=== PATIENT | female | born 1970 | race Caucasian/White ===

== ENCOUNTER 2018-03-03 17:42 | Emergency (ER) | payer BC, SELFPAY ==
[2018-03-03 17:43] VITALS: BP 144/76; PULSE 79; RESP 16; TEMP 36.7; O2SAT 97; BMI 38.7
--- NOTE | 2018-03-03 17:58 | CT_ITS ---
STUDY: CT ABDOMEN AND PELVIS WITHOUT CONTRAST REASON FOR EXAM: Female, 47 years old. Right-sided pain RADIATION DOSAGE (If Supplied By Facility): CTDIvol = ( 17.26 ) mGy, DLP = ( 888.25 ) mGycm TECHNIQUE: Transaxial images were obtained from the dome of the diaphragm to the symphysis pubis without oral contrast, and without intravenous contrast. Sagittal and coronal images were reconstructed. Individualized dose optimization techniques were used for this CT. COMPARISON: None. FINDINGS: Evaluation of the abdominal viscera is limited in the absence of intravenous contrast. The visualized lung bases are clear. The visualized portions of the heart and pericardium are within normal limits. There are no calcified gallstones present. The liver demonstrates an unremarkable unenhanced appearance. The spleen is normal in size. The pancreas demonstrates an unremarkable unenhanced appearance. The adrenal glands are within normal limits. There are no renal or ureteral stones. There is no hydronephrosis. Normal visualized stomach. There is no bowel obstruction or inflammation. The appendix is visualized and appears normal. The aorta is normal in caliber. There is no abdominal or pelvic free air, free fluid, fluid collection or lymphadenopathy. There are no destructive osseous lesions. CT/Abdomen/Pelvis without Cont IMPRESSION: No acute abdominal or pelvic pathology demonstrated on this noncontrast CT. Electronically Signed: rA Lord, at 19:17 EST Tel , Service support ,
[2018-03-03] MEDS: 0.9% Normal Saline 1,000 ML 125 ML IV (18:45)
[2018-03-03] MEDS: Ketorolac 30 MG/ML Syringe IV (18:45)
[2018-03-03 18:57] LABS: BUN 14 mg/dL (7-18); BUN/Creat Ratio 16.4 RATIO (10-20); Chloride 105 mmol/L (98-107); Creatinine, Serum 0.86 mg/dL (0.55-1.02); EST Glomerular Filtration Rate 75 mL/min (>60); Est Glom Filt Rate - Afr Amer 91 mL/min (>60); Glucose 105 mg/dL (74-106); Potassium 3.9 mmol/L (3.5-5.1); Sodium Level 137 mmol/L (136-145)
[2018-03-03 18:58] LABS: Anion Gap 10 (5-15)
[2018-03-03 19:01] LABS: Absolute Lymphocyte Count 3.51 X10^3/ul (0.83-4.51); Absolute Neutrophil Count 10.3 X10^3/uL (2.0-7.7); Basophil# 0.03 X10^3/uL; Basophil% 0.2 % (0-1); Eosinophil# 0.14 X10^3/uL; Eosinophils% 0.9 % (0-5); Hematocrit 44.3 % (37-47); Hemoglobin 15.1 g/dl (12.0-15.0); Lymphocyte # 3.51 X10^3/ul (4.0); Lymphocyte % 22.9 % (19-41); Mean Corp Hgb Conc 34.1 g/gl (32-36); Mean Corpuscular Hgb 29.3 pg (27.0-32.0); Mean Corpuscular Volume 85.9 fL (81-99); Mean Platelet Vol. 9.1 fl (6.2-12.0); Monocyte# 1.25 X10^3/uL; Monocyte% 8.2 % (0-10); Neutrophil # 10.34 X10^3/uL (2.7-7.7); Neutrophil % 67.5 % (47-70); Platelet Count 376 K/mm3 (150-450); RBC Distribution Width CV 12.8 % (11.6-14.6); RBC Distribution Width SD 40.2 fl (35.1-43.9); Red Blood Count 5.16 M/mm3 (4.2-5.4); White Blood Count 15.3 K/mm3 (4.4-11.0)
[2018-03-03 19:02] LABS: Mucous, Urine 0 SEEN /hpf (<or=2+); White Blood Cells 0 SEEN /hpf (0-5)
[2018-03-03 19:08] LABS: Color, Urine SEE COMMENT BELOW (Yellow); Glucose, Dipstick Normal (Normal); Ketone-Dipstick Negative (Negative); Leukocyte Esterase-Dipstick Negative /ul (Negative); Nitrite-Dipstick Negative (Negative); Occult Blood-Urine 150 /ul (Negative); Protein-Dipstick 100 mg/dl (Negative); Urine Bilirubin Dipstick 3 mg/dL (Negative); Urine Clarity Sl. Cloudy (Clear); Urine Urobilinogen 1 mg/dl (Normal)
[2018-03-03 19:17] LABS: Bacteria RARE /hpf (None Seen); Red Blood Cells-Urine > 100 SEEN /hpf (0-5); Squamous Epithelial Cells - UA 5-10 SEEN /hpf (5-10)
[2018-03-03 19:19] LABS: POSITIVE COUNT NO; POSITIVE DIFFERENTIAL NO; POSITIVE MORPHOLOGY NO
--- NOTE | 2018-03-03 19:38 | ED.VISSUMM ---
- ER Visit Summary Date of Service: 03/03/18 Chief Complaint: [Right-sided abdomen/flank pain] History of Present Illness: The patient is a 47 F [presents the emergency department with complaint of pain in her right side that started around 4 PM. Patient states that she had sudden onset of severe excruciating pain that caused her to be nauseated and have dry heaves. Patient states that after coming home from work she started having some urinary frequency-like symptoms and so she took some Pyridium. Patient then subsequently developed severe pain with diaphoresis. Patient is never had pain like that before. On arrival to the emergency department she states that her pain is much improved and is currently a 2 out of 10. Patient denies any fever or recent illness. Patient does have a history of UTIs. Patient's last menstrual period was February 24. She does not believe she is .] Physical Examination: [HEENT-PERRLA, EOMI. Cranial nerves II through XII grossly intact. TMs clear. Mucous membranes moist. No adenopathy. Cardiovascular-regular rate and rhythm without murmur or ectopy Lungs-clear to auscultation, chest wall stable without crepitus or subcu emphysema Abdomen-normoactive bowel sounds, soft. Patient has mild tenderness over right lower quadrant with no rebound, rigidity, or perineal signs. Extremities-intact ?4, normal range of motion, normal pulses, atraumatic] Test Results: [CBC with differential obtained showed a white count of 15.3, hemoglobin 15, hematocrit 44, platelets 376. Chemistries were unremarkable. Urinalysis was positive for greater than 100 RBCs but no signs of infection. Urine test pending. CT flank was normal. Patient had a normal appendix and no other acute disease process was noted.] Emergency Department Course and Treatment: [Patient was given Toradol on arrival to the emergency department. Patient is currently pain-free.] Treatment Plan: [I suspect patient likely passed a kidney stone given the blood in the urine and her description of sudden onset severe pain. Patient advised to follow-up with her primary care physician within next 3-5 days. Patient advised to return if worsening pain, fever, vomiting, or condition should worsen anyway.] Disposition: [Discharged home in stable condition] Impression: [Kidney stone-past] This note was generated with [employer] software. It may contain incorrect words, spelling, and punctuation that were not noted in review of the chart prior to signing ED Disposition - Plan for ED Patient: Chief Complaint: Abd Pain Referrals: Care Physician,No Primary [Primary Care Provider] -
--- NOTE | 2018-03-03 19:41 | ED.DEP ---
ED Disposition - Plan for ED Patient: Chief Complaint: Abd Pain Instructions: ED Stone Renal Passed Referrals: Shi Acosta MD [STAFF PHYSICIAN] - 3-5 Days
[2018-03-03 20:08] VITALS: BP 122/78; PULSE 84; RESP 17; RESP 18; O2SAT 94
[2018-03-03 20:14] LABS: Internal QC Validated? YES +Cl - CLEAR BKGD; Pregnancy, Urine Negative Negative
== END 2018-03-03 20:10 | disposition home or self-care (01) ==
PROVIDERS: Emergency Provider Emergency Medicine
DX: N20.0 Calculus of kidney (principal); R10.31 Right lower quadrant pain; Z87.440 Personal history of urinary (tract) infections
CPT/HCPCS: 74176; 80048; 81001; 81025; 85025; 96361; 96374; 99283; J7030; A4216

== ENCOUNTER → 2019-06-23 15:21 | Outpatient (CLI) | payer BC, SELFPAY ==
--- NOTE | 2019-06-23 15:25 | RAD_ITS ---
STUDY: X-RAY - PARANASAL SINUSES REASON FOR EXAM: Female, 49 years old. Snoring, unable to breathe while sleeping TECHNIQUE: 3 view(s) of the paranasal sinuses were obtained. COMPARISON: None. FINDINGS: Normal visualized frontal, maxillary, ethmoidal and sphenoid sinuses. Normal visualized facial bones. The soft tissue structures are unremarkable. RAD/Sinuses min 3 Views IMPRESSION: Normal x-rays of the paranasal sinuses. Electronically Signed: Bao Merino, at 15:56 EDT , Service support ,
[2019-06-23 18:01] LABS: Anion Gap 7 (5-15); BUN 11 mg/dL (7-18); BUN/Creat Ratio 11.2 RATIO (10-20); Calcium,Total 9.2 mg/dL (8.5-10.1); Chloride 105 mmol/L (98-107); Cholesterol 237 mg/dL (200); Creatinine, Serum 0.98 mg/dL (0.55-1.02); EST Glomerular Filtration Rate 64 mL/min (>60); Est Glom Filt Rate - Afr Amer 78 mL/min (>60); Glucose 70 mg/dL (74-106); High Density Lipoprotein 51 mg/dL; Potassium 3.6 mmol/L (3.5-5.1); Sodium Level 138 mmol/L (136-145); Thyroid Stim Hormone (TSH) 3.56 uIU/mL (0.358-3.74); Triglycerides 82 mg/dL; Very Low Density Lipoprotein 16 mg/dL (5-40)
== END ==
PROVIDERS: PCP Family Medicine; Referring Provider Family Medicine; Visit Provider Family Medicine
DX: R06.83 Snoring (principal); E78.00 Pure hypercholesterolemia, unspecified; Z13.1 Encounter for screening for diabetes mellitus; E66.9 Obesity, unspecified
CPT/HCPCS: 36415; 70220; 80048; 80061; 84443

== ENCOUNTER → 2020-12-26 | Outpatient (CLI) | payer BC, SELFPAY | END | disposition home or self-care (01) | PROVIDERS: PCP Family Medicine; Visit Provider Family Medicine | DX: U07.1 COVID-19 (principal) | CPT/HCPCS: 87635; U0005; U0003 ==

== ENCOUNTER 2020-12-27 15:59 | Outpatient (CLI) | payer BC, SELFPAY ==
[2020-12-27 16:14] VITALS: BP 133/76; PULSE 113; RESP 16; TEMP 37; O2SAT 96; BMI 38.0
[2020-12-27] MEDS: 0.9% Saline Lock 10 ML Syringe IV (16:20)
[2020-12-27 17:07] VITALS: BP 114/70; PULSE 84; RESP 16; TEMP 37.9; O2SAT 95
[2020-12-27 18:10] VITALS: BP 119/70; PULSE 85; RESP 16; TEMP 37.1; O2SAT 94
== END 2020-12-27 18:10 | disposition home or self-care (01) ==
LOC: MS3OUT 15:59 → MS3 16:00
PROVIDERS: PCP Family Medicine; Referring Provider Nurse Practitioner Adult Health; Visit Provider Nurse Practitioner Adult Health
DX: Z23 Encounter for immunization (principal); U07.1 COVID-19
CPT/HCPCS: J7050; M0245; Q0245; A4216

== ENCOUNTER 2021-12-02 10:06 | Outpatient (CLI) | payer BC, SELFPAY ==
[2021-12-09 19:09] LABS: HPV APTIMA, High Risk Negative (Negative)
== END 2021-12-02 23:59 | disposition home or self-care (01) ==
LOC: LABSPEC 10:09
PROVIDERS: PCP Family Medicine; Visit Provider Student in an Organized Health Care Education/Training Program
DX: Z12.4 Encounter for screening for malignant neoplasm of cervix (principal)
CPT/HCPCS: 87624; 88175; G0145

== ENCOUNTER → 2021-12-23 | Outpatient (CLI) | payer BC, SELFPAY ==
--- NOTE | 2021-12-23 10:36 | BI_ITS ---
MAMMOGRAPHY - BILATERAL SCREENING REASON FOR EXAM: Female, 51 years old. Routine annual screening examination. PERTINENT HISTORY: Aunt with breast cancer. TECHNIQUE: Digital bilateral breast jose alfredo (3D mammographic acquisition) in the CC and MLO projections. 2-D mediolateral oblique (MLO) and craniocaudad (CC) views of both breasts were obtained. CAD: Full Field Digital Mammography with Computer Added Detection was performed. COMPARISON: Comparison is made with prior study dated 09/03/2012. FINDINGS: Breast Composition: There are scattered areas of fibroglandular density. There are no dominant masses or suspicious calcifications. Stable benign-appearing bilateral axillary lymph nodes. No other significant abnormalities are identified. There has been no significant change since the prior study. BI/SCRN MAMM (CAD)W/JOSE ALFREDO BILAT IMPRESSION: Stable bilateral screening mammogram. Yearly follow-up mammogram recommended. (A) ASSESSMENT CATEGORY: BIRADS Category 2: Benign. A letter regarding these results will be sent to the patient by the facility within 30 days. Approximately 10% of breast cancers are not detected by mammography. A normal mammogram should not delay biopsy of a clinically suspicious abnormality. [id number] Electronically Signed: Bao Merino MD at 12:08 EDT ,
== END | disposition home or self-care (01) ==
LOC: OPBI 10:33
PROVIDERS: PCP Family Medicine; Referring Provider Student in an Organized Health Care Education/Training Program; Visit Provider Student in an Organized Health Care Education/Training Program
DX: Z12.31 Encounter for screening mammogram for malignant neoplasm of breast (principal)
CPT/HCPCS: 77063; 77067

== ENCOUNTER → 2022-10-20 | Outpatient (CLI) | payer BC, SELFPAY ==
[2022-10-20 18:02] LABS: Absolute Neutrophil Count 4.5 X10^3/uL (2.0-7.7); Basophil# 0.08 X10^3/uL; Basophil% 0.8 % (0-1); Eosinophil# 0.35 X10^3/uL; Eosinophils% 3.5 % (0-5); Hematocrit 41.6 % (37-47); Lymphocyte % 41.2 % (19-41); Mean Corp Hgb Conc 33.7 g/dL (32-36); Mean Corpuscular Hgb 30.1 pg (27.0-32.0); Mean Corpuscular Volume 89.5 fL (81-99); Mean Platelet Vol. 9.6 fl (6.2-12.0); Monocyte# 0.92 X10^3/uL; Monocyte% 9.2 % (0-10); NRBC Flagged by Analyzer 0 % (0-5); Neutrophil # 4.48 X10^3/uL (2.7-7.7); Neutrophil % 45.1 % (47-70); Platelet Count 340 K/mm3 (150-450); RBC Distribution Width CV 12.8 % (11.6-14.6); RBC Distribution Width SD 41.7 fl (35.1-43.9); Red Blood Count 4.65 M/mm3 (4.2-5.4)
[2022-10-20 18:45] LABS: AST(SGOT) 24 U/L (15-37); Alanine Aminotransfer ALT/SGPT 23 U/L (13-56); Albumin, Serum 4.1 g/dL (3.2-5.0); Alkaline Phosphatase 67 U/L (45-117); Anion Gap 5 (5-15); BUN 16 mg/dL (7-18); BUN/Creat Ratio 15.1 RATIO (10-20); Bilirubin, Direct 0.13 mg/dL (0.00-0.30); Calcium,Total 9.5 mg/dL (8.5-10.1); Chloride 108 mmol/L (98-107); Creatinine, Serum 1.06 mg/dL (0.55-1.02); EST Glomerular Filtration Rate 58 mL/min (>60); Est Glom Filt Rate - Afr Amer 70 mL/min (>60); Globulin 3.3 g/dL (2.2-4.2); Glucose 76 mg/dL (74-106); Potassium 4.5 mmol/L (3.5-5.1); Protein, Total 7.4 g/dL (6.4-8.2); Sodium Level 139 mmol/L (136-145)
[2022-10-20 19:11] LABS: Hepatitis B Surface Antibody Non-Reactive; Hepatitis B Surface Antigen Non-Reactive (Nonreactive); Hepatitis C Antibody Non-Reactive (Nonreactive)
[2022-10-22 15:08] LABS: Hepatitis B Core Ab Total Negative (Negative); QNTFERON TB Mitogen Value > 10.00 IU/mL (.); QNTFERON TB Nil Value 0.04 IU/mL (.); QNTFERON TB1+ Ag Value 0.07 IU/mL (.); QNTFERON TB2+ Ag Value 0.11 IU/mL (.); QNTIFERON TB Positive Criteria Negative (Negative)
== END | disposition home or self-care (01) ==
PROVIDERS: PCP Family Medicine; Referring Provider Dermatology Pediatric Dermatology; Visit Provider Dermatology Pediatric Dermatology
DX: L40.0 Psoriasis vulgaris (principal); L40.8 Other psoriasis; M12.9 Arthropathy, unspecified; Z79.899 Other long term (current) drug therapy
CPT/HCPCS: 36415; 80048; 80076; 85025; 86480; 86704; 86706; 86803; 87340

== ENCOUNTER 2023-06-19 10:33 | Day surgery (SDC) | payer BC, SELFPAY ==
[2023-06-19] VITALS (7 sets, daily range): BP systolic 89–129; BP diastolic 48–92; PULSE 58–86; RESP 12–18; TEMP 36.1; O2SAT 96–100; BMI 36.8
--- NOTE | 2023-06-19 | EGD_PTH ---
PATIENT: LEONARDA CHAUDHARI LOC: EN U#:[id number] AGE/SX: 53/F ROOM: RE06/19/[address]: Dr. Pearl Clark MD : 1970 BED: DIS: 06/19/2023 SPEC #: [id number] RECD: 06/19/23 14:06 STATUS: JUANITA JAELYN #: [id number] TITO: 06/19/23 00:[address]: Pearl Clark DEPT: SURGICAL PATHOLOGY RECD BY: Alem Atkinson ENTERED: 06/19/23 14:22 SP TYPE: EGD BIOPSY ANABELLE DR: Dr. Chalino Roy MD Tissues: Gastric mucous membrane Procedures: Surgery Specimen Level IV HEADER OPERATION: Colonoscopy, EGD with biopsy PRE-OP DIAGNOSIS: GERD, Epigastric pain, Screening for colon cancer TISSUE SUBMITTED: Gastric antrum biopsy MICROSCOPIC DIAGNOSIS Gastric antrum, biopsy: Mild chronic inflammation. AM/mr 06/23/2023 COMMENT The results of immunohistochemistry for Helicobacter pylori will be reported separately ([id number]). MICROSCOPIC DESCRIPTION Slides are reviewed. GROSS DESCRIPTION Received in fixative is one container labeled with the patient's name and designated Gastric antrum biopsy. The specimen consists of one irregular fragment of light torres soft tissue that measures 0.3 x 0.3 x 0.1 cm. The specimen is totally submitted in one cassette. NBA/ 06/19/23 TC:3 CPT:80561
--- NOTE | 2023-06-19 10:47 | HP.PCM_ITS ---
History and Physical Date of Admission: 06/19/23 MR#: [id number] Acct: [id number] Name: LEONARDA CHAUDHARI Rep #: [id number] : 1970 Provider: Dr. Pearl Clark MD Age/Sex: 53/F Location: [facility] Status: Signed with Addenda ADDENDUM by Dr. Pearl Clark MD on 06/17/23 at 1111 Intake Chief Complaint: Colonoscopy consult Allergies hydrocodone [From Vicodin] Allergy (Intermediate, Verified 06/17/23 10:13) Vomiting Medications citalopram 20 mg tablet 10 mg PO DAILY 06/15/23 [History Confirmed 06/17/23] guselkumab 100 mg/mL subcutaneous auto-injector (Tremfya) 100 mg subcut Q8W PRN PSORIASIS 06/15/23 [History Confirmed 06/17/23] ibuprofen 200 mg tablet 400 mg PO BID 06/17/23 [History Confirmed 06/17/23] multivitamin (Daily Multi-Vitamin tablet) 1 tab PO DAILY 06/17/23 [History Confirmed 06/17/23] omeprazole 40 mg capsule,delayed release 40 mg PO QDAY #30 caps 06/17/23 [Rx Confirmed 06/17/23] Assessment and Plan Assessment and Plan (1) GERD (gastroesophageal reflux disease): Status: Acute (2) Epigastric pain: Status: Acute (3) Screening for colon cancer: Status: Acute Orders: Orders Colonoscopy 06/19/23 Apoorva FINE PA-C EGD 06/19/23 Apoorva FINE PA-C Medications: New omeprazole swallow whole; do not crush, chew, dissolve, cut, break 40 mg PO QDAY [address] Pearl Clark MD Plan Correction patient will have 2 days of clears and a 2-day prep due to issues with constipation. Did discuss with patient the importance of fiber diet and patient was given a sheet and I will plan to look into that. 06/17/23 1111 <Electronically signed by Pearl Clark MD> Date Pearl Clark MD cc: Dr. Chalino Roy MD ~* Signed Intake Vital Signs 12/28/2115:14 06/14/2408:02 Height 5 ft 3 in 5 ft 3 in Weight: 216 lb 8 oz BMI 38.3 BP 122/87 H Blood Pressure Location Rt brachial Position Sitting Respiration 18 Pulse 60 Pulse Source Monitor Temp 96.7 F L Temp Source Temporal Pulse Oximetry (%) 97 Oxygen Delivery Method room air Intake Visit Reasons: COLONOSCOPY - CHANGE IN BOWELS Chief Complaint: Colonoscopy consult Chinese Language Professor Required: No Is patient in pain?: No Allergies hydrocodone [From Vicodin] Allergy (Intermediate, Verified 06/17/23 10:13) Vomiting Medications citalopram 20 mg tablet 10 mg PO DAILY 06/15/23 [History Confirmed 06/17/23] guselkumab 100 mg/mL subcutaneous auto-injector (Tremfya) 100 mg subcut Q8W PRN PSORIASIS 06/15/23 [History Confirmed 06/17/23] ibuprofen 200 mg tablet 400 mg PO BID 06/17/23 [History Confirmed 06/17/23] multivitamin (Daily Multi-Vitamin tablet) 1 tab PO DAILY 06/17/23 [History Confirmed 06/17/23] omeprazole 40 mg capsule,delayed release 40 mg PO QDAY #30 caps 06/17/23 [Rx Confirmed 06/17/23] PFSH Medical History (Updated 06/17/23 @ 11:[address] Pearl Clark MD) Anxiety Arthritis Blood in stool Constipation CPAP (continuous positive airway pressure) dependence Epigastric pain Gastric reflux Heartburn High cholesterol History of back problems History of stress test Psoriasis RUQ pain Sleep apnea Wears contact lenses Surgical History (Updated 06/17/23 @ 10:24 by Kari Funk) History of History of nasal surgery History of wisdom tooth extraction Family History Father Heart disease Hypertension High cholesterolMother CVA (cerebral vascular accident) Social History (Updated 06/15/23 @ 09:10 by Elena Valencia) Smoking Status: Never smoker alcohol intake: never substance use type: does not use HPI HPI HPI: 53-year-old female presents due to screening colonoscopy history of bright red blood per rectum x 1, GERD. Patient states that she normally has bowel movements daily prior to March when she began weight watchers now she only has a bowel maybe once a week. Patient states about 2 months ago she did have bright red blood per rectum 1 time. Patient has been having bowel moods without blood or recently. Patient denies any family history of colon cancer. Patient states she does have some right upper quadrant discomfort and can happen in the middle of the night as well rates 1-2/10 currently but can get up to a 5/10. Patient has not eaten this morning. Patient does admit to having some reflux and states she did seem to take medication more prior to starting weight watchers for the symptoms. Patient's main assessment was burning of the esophagus. Patient currently does not have that symptom but does have right upper quadrant/ epigastric discomfort. ROS General General: Yes weight change and fatigue; No appetite, colon cancer, breast cancer or weakness HEENT HEENT: No difficulty swallowing, eye injury, eye surgery, swollen glands or hoarseness Endo Endocrine: No thyroid disease, diabetes mellitus, thyroid cancer, Hair loss, heat intolerance or cold intolerance Skin Skin: No rash or changing moles Additional Details: history of psoriasis Breast Breast: No left breast lump, right breast lump, nipple discharge, breast pain, abnormal mammogram, abnormal US or breast enlargement Musc Musculoskeletal: Yes back problems; No arthritis, rheumatoid arthritis, gout or joint pain Cardio Cardiovascular: No murmur, pacemaker, heart disease, atrial fibrillation, high blood pressure, heart attack, heart stent, palpitations, shortness of breat with exertion or chest pain Psych Psychiatric: Yes anxiety; No depression or hearing voices Resp Respiratory: No shortness of breath, Yes sleep apnea, No cough, No COPD, No asthma, No emphysema and No wheezing Gastro Gastrointestinal: Yes abdominal pain, No nausea or vomiting, No diarrhea, Yes constipation, Yes blood in stool, No acid reflux, No hemorrhoids, No ulcers, No gallbladder problem and No black,tarry stools Additional Details: RUQ and epigastric pain radiating to back for approximately one onth Cj Hematologic: No blood thinners, No blood disorders, No bleeding, No anemia and No blood clots Neuro Neurologic: No system reviewed and no additional complaints, except as documented, No as per HPI, No abnormal gait, No abnormal hearing, No abnormal movements, No abnormal speech, No behavioral changes, No burning sensations, No confusion, No convulsions, No disequilibrium, No dizziness, No localized weakness, No frequent falls, No headache(s), No lack of coordination, No loss of vision, No memory loss, Yes numbness, No other visual disturbances, No radicular pain, No restless legs, No sensory deficit, No syncope, Yes tingling, No tremor( s), No weakness and No other Exam Const General: cooperative, healthy appearing, comfortable and no acute distress HENMT Head: normocephalic and atraumatic Neck Neck: supple Resp Effort & Inspection: normal respiratory effort Cardio Rate: regular rate GI Inspection: non-distended Palpation: soft, no hernias and tender in the epigastrum (Mild no peritoneal signs) Skin General: no rashes or lesions noted Neuro General: CN's II-XI intact bilaterally Extrem General: normal to inspection Psych Mental Status: mental status grossly normal Attitude: cooperative Assessment and Plan Assessment and Plan (1) GERD (gastroesophageal reflux disease): Status: Acute (2) Epigastric pain: Status: Acute (3) Screening for colon cancer: Status: Acute Orders: Orders Colonoscopy 06/19/23 Apoorva FINE PA-C EGD 06/19/23 Apoorva FINE PA-C Medications: New omeprazole swallow whole; do not crush, chew, dissolve, cut, break 40 mg PO QDAY [address] Pearl Clark MD Plan We will send a prescription for omeprazole for patient. I have discussed the above with the patient. I have offered the patient esophagogastroduodenoscopy and colonoscopy for evalu ation. I have explained the risks/benefits of the procedure and described the procedure. I have discussed the risks with the patient, including but not limited to: infection, bleeding, perforation of the GI tract requiring emergency surgery, inability to complete the procedure, injury to any internal organs, complications of anesthesia, etc. - the patient understands and agrees to proceed. I have answered all the patient's questions to the patient's satisfaction and the patient has no further questions. The patient has been given instructions for the colon cleansing preparation. 1 day of clears, MiraLAX Dulcolax split prep. Pearl Clark M.D. Pager: [phone] [facility] [address] [place] [address], [facility], [address] [place] [address] Office: [phone] Coding Level of Care Code Off vis,new,level 3 Diagnoses GERD (gastroesophageal reflux disease) K21.9 Epigastric pain R10.13 Screening for colon cancer Z12.11 06/17/23 1108 <Electronically signed by Pealr Clark MD> Date Pearl Clark MD
[2023-06-19] MEDS: Lactated Ringers 1,000 ML 15 ML IV (11:13)
--- NOTE | 2023-06-19 11:18 | NURSING ---
Pt states she has not had a menstrual period in the last year. refused test. Dr. Lul beal.
--- NOTE | 2023-06-19 12:16 | OP.EGD_ITS ---
Patient Name: Alexa Corley Procedure Date: 06/19/2023 11:29 AM Date of : 1970 Age: 53 Procedure: Upper GI endoscopy Indications: Heartburn Providers: Pearl Clark MD Referring MD: Bismark Roy Medicines: Monitored Anesthesia Care Patient Profile: This is a 53 year old female. Complications: No immediate complications. Procedure: Pre-Anesthesia Assessment: - Prior to the procedure, a History and Physical was performed, and patient medications and allergies were reviewed. The patient's tolerance of previous anesthesia was also reviewed. The risks and benefits of the procedure and the sedation options and risks were discussed with the patient. All questions were answered, and informed consent was obtained. Prior Anticoagulants: The patient has taken no anticoagulant or antiplatelet agents. ASA Grade Assessment: Per anesthesia. After reviewing the risks and benefits, the patient was deemed in satisfactory condition to undergo the procedure. After obtaining informed consent, the endoscope was passed under direct vision. Throughout the procedure, the patient's blood pressure, pulse, and oxygen saturations were monitored continuously. The Colonoscope was introduced through the mouth, and advanced to the second part of duodenum. The upper GI endoscopy was accomplished without difficulty. The patient tolerated the procedure well. Scope In: 11:47:10 AM Scope Out: 11:51:06 AM Total Procedure Duration Time 0 hours 3 minutes 56 seconds Findings: The Z-line was variable. The cardia and gastric fundus were normal on retroflexion. Mildly erythematous mucosa without bleeding was found in the gastric antrum. Biopsies were taken with a cold forceps for histology. Biopsies were taken with a cold forceps for Helicobacter pylori testing. The examined duodenum was normal. No gross lesions were noted in the entire esophagus. Impression: - Z-line variable. - Erythematous mucosa in the antrum. Biopsied. - Normal examined duodenum. - No gross lesions in the entire esophagus. Recommendation: - Await pathology results. - Discharge patient to home. - Resume previous diet. - Use Prilosec (omeprazole) 40 mg PO daily. - Continue present medications. Procedure Code(s): --- Professional --- 41830, Esophagogastroduodenoscopy, flexible, transoral; with biopsy, single or multiple Diagnosis Code(s): --- Professional --- K22.89, Other specified disease of esophagus K31.89, Other diseases of stomach and duodenum R12, Heartburn CPT copyright 2021 [employer]. All rights reserved. The codes documented in this report are preliminary and upon crtts review may be revised to meet current compliance requirements. MD Pearl Vang MD 06/19/2023 12:16:05 PM This report has been signed electronically. Number of Addenda: 0 Note Initiated On: 06/19/2023 11:29 AM
--- NOTE | 2023-06-19 12:17 | OP.CCLET_ITS ---
06/19/2023 Bismark Roy [address] [place] [address] Re : Upper GI endoscopy procedure for Alexa Campbellraji Dear Dr. Roy This procedure was performed on Monday, June 19, 2023. My impressions and recommendations are as follows: Impressions : - Z-line variable. - Erythematous mucosa in the antrum. Biopsied. - Normal examined duodenum. - No gross lesions in the entire esophagus. Recommendations : - Await pathology results. - Discharge patient to home. - Resume previous diet. - Use Prilosec (omeprazole) 40 mg PO daily. - Continue present medications. My findings are described in the full procedure note, which is enclosed. If I can be of further assistance, please feel free to contact me at Doctor phone number(s): , Work: . Sincerely, MD Pearl Vang MD 06/19/2023 12:16:05 PM This report has been signed electronically.
--- NOTE | 2023-06-19 12:22 | OP.CCLET_ITS ---
06/19/2023 Bismark Roy [address] [place] [address] Re : Colonoscopy procedure for Alexa Corley Dear Dr. Roy This procedure was performed on Monday, June 19, 2023. My impressions and recommendations are as follows: Impressions : - The entire examined colon is normal on direct and retroflexion views. - No specimens collected. Recommendations : - Discharge patient to home. - Resume previous diet. - Continue present medications. - Repeat colonoscopy in 10 years for screening purposes. My findings are described in the full procedure note, which is enclosed. If I can be of further assistance, please feel free to contact me at Doctor phone number(s): , Work: . Sincerely, MD Pearl Vang MD 06/19/2023 12:21:32 PM This report has been signed electronically.
--- NOTE | 2023-06-19 12:22 | OP.COLON_ITS ---
Patient Name: Alexa Corley Procedure Date: 06/19/2023 11:51 AM Date of : 1970 Age: 53 Procedure: Colonoscopy Indications: Screening for colorectal malignant neoplasm Providers: Pearl Clark MD Referring MD: Bismark Roy Medicines: Monitored Anesthesia Care Patient Profile: This is a 53 year old female. Last Colonoscopy: none. The patient's first colonoscopy is today. Complications: No immediate complications. Procedure: Pre-Anesthesia Assessment: - Prior to the procedure, a History and Physical was performed, and patient medications and allergies were reviewed. The patient's tolerance of previous anesthesia was also reviewed. The risks and benefits of the procedure and the sedation options and risks were discussed with the patient. All questions were answered, and informed consent was obtained. Prior Anticoagulants: The patient has taken no anticoagulant or antiplatelet agents. ASA Grade Assessment: Per anesthesia. After reviewing the risks and benefits, the patient was deemed in satisfactory condition to undergo the procedure. After I obtained informed consent, the scope was passed under direct vision. Throughout the procedure, the patient's blood pressure, pulse, and oxygen saturations were monitored continuously. The Colonoscope was introduced through the anus and advanced to the cecum, identified by appendiceal orifice and ileocecal valve. The colonoscopy was performed without difficulty. The patient tolerated the procedure well. The quality of the bowel preparation was good. Scope In: 11:53:03 AM Scope Withdrawal Time 0 hours 12 minutes 23 seconds Scope Out: 12:09:36 PM Total Procedure Duration Time 0 hours 16 minutes 33 seconds Findings: The perianal and digital rectal examinations were normal. The entire examined colon appeared normal on direct and retroflexion views. Impression: - The entire examined colon is normal on direct and retroflexion views. - No specimens collected. Recommendation: - Discharge patient to home. - Resume previous diet. - Continue present medications. - Repeat colonoscopy in 10 years for screening purposes. Procedure Code(s): --- Professional --- G0121, PT, Colorectal cancer screening; colonoscopy on individual not meeting criteria for high risk Diagnosis Code(s): --- Professional --- Z12.11, Encounter for screening for malignant neoplasm of colon CPT copyright 2021 [employer]. All rights reserved. The codes documented in this report are preliminary and upon almond roaster review may be revised to meet current compliance requirements. MD Pearl Vang MD 06/19/2023 12:21:32 PM This report has been signed electronically. Number of Addenda: 0 Note Initiated On: 06/19/2023 11:51 AM
--- NOTE | 2023-06-19 14:30 | IMM_PTH ---
PATIENT: LEONARDA CHAUDHARI LOC: EN U#:[id number] AGE/SX: 53/F ROOM: RE06/19/[address]: Dr. Pearl Clark MD : 1970 BED: DIS: 06/19/2023 SPEC #: [id number] RECD: 06/19/23 14:31 STATUS: JUANITA REQ #: [id number] TITO: 06/19/23 14:[address]: Pearl Clark DEPT: IMMUNOHISTOCHEMISTRY RECD BY: Darrel Ohara ENTERED: 06/19/23 14:32 SP TYPE: IMMUNO OTHR DR: Dr. Chalino Roy MD Tissues: Stomach, NOS Procedures: H Pylori (initial) PHYSICIAN & INSTITUTION [place] [id number] SPECIMEN INFORMATION: Tissue Source: Gastric antrum Clinical Info: GERD, Epigastric pain, Screening for colon cancer Specimen Number: [id number] CPT code: 07165 METHODOLOGY: Deparaffinized sections of prefer/formalin-fixed tissue or PAP/DQ stained slides are incubated with monoclonal/polyclonal antibodies/oligonucleotide probes. Localization is made via biotin free immunoperoxidase method. Appropriate controls are performed and reacted as expected. Results on target cell population are indicated in the following table: RESULTS: ANTIBODY / CLONE RESULT H Pylori (polyclonal) negative These tests were developed and their performance characteristics determined by [facility]. They may not have been cleared or approved by the [place] Food and Drug Administration. The FDA has determined that such clearance or approval is not necessary. The above immunohistochemical/dualISH markers are ordered and reviewed by the Pathologist. INTERPRETATION: Gastric antrum, biopsy: Negative for Helicobacter pylori organisms. ROBER/ 06/23/2023
== END 2023-06-19 13:27 | disposition home or self-care (01) ==
LOC: EN 10:35 → AC 10:36
PROVIDERS: PCP Family Medicine; Referring Provider Family Medicine; Visit Provider Surgery
PROC: 0DJD8ZZ Inspection of Lower Intestinal Tract, Via Natural or Artificial Opening Endoscopic (ICD-10-PCS; CPT 45378; principal; 2023-06-19 14:25)
DX: Z12.11 Encounter for screening for malignant neoplasm of colon (principal); K21.9 Gastro-esophageal reflux disease without esophagitis; E78.00 Pure hypercholesterolemia, unspecified; R10.13 Epigastric pain; K31.89 Other diseases of stomach and duodenum; K22.89 Other specified disease of esophagus; F41.9 Anxiety disorder, unspecified; Z79.899 Other long term (current) drug therapy
CPT/HCPCS: 45378; 43239; 88305; 88342; J7120; J2405

== ENCOUNTER → 2024-07-29 | Outpatient (CLI) | payer BC, SELFPAY ==
[2024-07-29 11:09] LABS: Anion Gap 10 (5-15); BUN 18 mg/dL (4-19); BUN/Creat Ratio 20.2 RATIO (10-20); Calcium,Total 9.4 mg/dL (7.6-11.0); Carbon Dioxide 25.1 mmol/L (21.0-32.0); Chloride 107 mmol/L (98-108); Cholesterol 242 mg/dL (<=200); Creatinine, Serum 0.91 mg/dL (0.70-1.20); EST Glomerular Filtration Rate 75 (>60); Glucose 105 mg/dL (70-99); High Density Lipoprotein 43 mg/dL; Low Density Lipoprotein Calc. 169 mg/dL; Potassium 4.9 mmol/L (3.3-5.1); Sodium Level 142 mmol/L (133-145); Triglycerides 153 mg/dL; Very Low Density Lipoprotein 31 mg/dL (5-40); Vitamin D,25 Hydroxy 34.3 ng/mL (30-100); cholesterol:hdl ratio screen 5.68
== END | disposition home or self-care (01) ==
LOC: MTLAB 08:01
PROVIDERS: PCP Family Medicine; Referring Provider Family Medicine; Visit Provider Family Medicine
DX: E78.00 Pure hypercholesterolemia, unspecified (principal); R79.89 Other specified abnormal findings of blood chemistry; F41.1 Generalized anxiety disorder; Z13.1 Encounter for screening for diabetes mellitus
CPT/HCPCS: 36415; 80048; 80061; 82306; 84439; 84443